=== PATIENT | female | born 1935 | race Caucasian/White ===

== ENCOUNTER 2019-07-29 13:06 | Emergency (ER) | payer MEDICARE, OTHER ==
--- NOTE | 2019-07-29 13:27 | ED ---
HPI Chest Pain - HPI Summary HPI Summary: The patient is an 84 y/o M presenting to [facility] accompanied by daughter with a chief complaint of intermittent episodes of diffuse CP for the last four days with hypertensive episodes for the last two days. When the CP began, she did not measure her BP, but since the CP continued intermittently although it lessened, she measured it over the last two days and found it to be elevated with 200mmHg systolic, per daughter. The CP is aggravated with lifting the right arm but not the left arm. She denies any pain or swelling in the calves, SOB, diaphoresis, or nausea. Currently, the sharp pain is rated 3/10 in severity as it has seemed to worsen again today. No diagnosed cardiac disease other than HTN. Unsure of cardiac FHx. No recent long travel. No history of blood clots. Last surgery in 2015 for right breast removal; currently on Anastrozole. Nonsmoker, occasional EtOH, no substance use. Medications reviewed. Allergies noted. - History of Current Complaint Time Seen by Provider: 07/29/19 13:18 Hx Obtained From: Patient, Family/Running Specialist - daughter Onset/Duration: Started Days Ago, Still Present Timing: Intermittent Initial Severity: Mild Current Severity: Moderate Pain Intensity: 3 Pain Scale Used: 0-10 Numeric Chest Pain Location: Diffuse Chest Pain Radiates: No Character: Sharp/Stabbing Aggravating Factor(s): Other: - lifting right arm Alleviating Factor(s): Spontaneous Resolution Associated Signs and Symptoms: Positive: Chest Pain. Negative: Shortness of Breath, Diaphoresis, Nausea - Allergy/Home Medications Allergies/Adverse Reactions: Allergies Allergy/AdvReac Type Severity Reaction Status Date / Time No Known Allergies Allergy Verified 11/25/15 07:20 Home Medications: Home Medications Anastrozole (NF) [Arimidex (NF)] 1 mg PO DAILY 07/29/19 [History Confirmed 07/29] Cholecalciferol CAP/TAB(NF) [Vitamin D3 CAP/TAB (NF)] 2,000 unit PO DAILY [History Confirmed 07/29/19] Cyanocobalamin TAB* [Vitamin B12 TAB*] 500 mcg PO DAILY 07/29/19 [History Confirmed 07/29/19] Glucosa Kendall 2Kcl/Chondroitin Kendall [Glucosamine & Chondroitin Cap] 1 each PO DAILY 07/29/19 [History Confirmed 07/29/19] PMH/Surg Hx/FS Hx/Imm Hx Cardiovascular History: Reports: Hx Hypertension - ON MEDS Denies: Other Cardiovascular Problems/Disorders GI History: Denies: Other GI Disorders Musculoskeletal History: 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 HERNIA REPAIR, RIGHT BREAST REMOVED 12/2015 Hx Anesthesia Reactions: No Infectious Disease History: No Infectious Disease History: Denies: Traveled Outside the [place] in Last 30 Days - Family History Known Family History: Negative: Diabetes - Social History Alcohol Use: Occasionally Alcohol Amount: 1 PER DAY Hx Substance Use: No Substance Use Type: Reports: None Hx Tobacco Use: No Smoking Status (MU): Never Smoked Tobacco Review of Systems Negative: Skin Diaphoresis Positive: Chest Pain - diffuse Negative: Shortness Of Breath Negative: Nausea All Other Systems Reviewed And Are Negative: Yes Physical Exam - Summary Physical Exam Summary: Constitutional: Well-developed, Well-nourished, Alert. (-) Distressed Skin: Warm, Dry HENT: Normocephalic; Atraumatic Eyes: Conjunctiva normal Neck: Musculoskeletal ROM normal neck. (-) JVD, (-) Stridor, (-) Tracheal deviation Cardio: Rhythm regular, rate normal, Heart sounds normal; Intact distal pulses; Radial pulses are 2+ and symmetric. (-) Murmur Pulmonary/Chest wall: Effort normal. Tenderness of the left and right costal margins. (-) Respiratory distress, (-) Wheezes, (-) Rales Abd: Soft, (-) tenderness, (-) Distension, (-) Guarding, (-) Rebound Musculoskeletal: (-) Edema Lymph: (-) Cervical adenopathy Neuro: Alert, Oriented x3 Psych: Mood and affect Normal Triage Information Reviewed: Yes Vital Signs On Initial Exam: Initial Vitals Temp Pulse Resp BP Pulse Ox 97.8 F 89 18 197/85 98 07/29/19 13:17 07/29/19 13:17 12/17/19 13:17 07/29/19 13:17 07/29/19 13:17 Vital Signs Reviewed: Yes Procedures - Sedation Patient Received Moderate/Deep Sedation with Procedure: No Diagnostics - Vital Signs Vital Signs Temp Pulse Resp BP Pulse Ox 07/29/19 13:17 97.8 F 89 18 197/85 98 - Laboratory Result Diagrams: 07/29/19 13:49 07/29/19 13:49 Lab Statement: Any lab studies that have been ordered have been reviewed, and results considered in the medical decision making process. - Radiology CXR Radiology Interpretation Completed By: Radiologist Summary of Radiographic Findings: Impression: No evidence for active cardiopulmonary disease. ED physician has reviewed this imaging report. - EKG 1309 Cardiac Rate: NL - 92 bpm EKG Rhythm: 1st Degree HB EKG Comparison: No Significant Change - Unchanged from EKG on 08/22/16. Summary of EKG Findings: An EKG at 1309 reveals sinus rhythm with first degree HB at 92 bpm. T-wave inversions in III. ED physician has reviewed and interpreted this EKG. Re-Evaluation - Re-Evaluation First Eval Re-Evaluation Time: 15:00 Comment: We discussed results and plan for discharge. Chest Pain Course/Dx - Course Course Of Treatment: Patient is here with 4 days of constant bilateral chest pain. Patient had an EKG performed which showed no changes from prior. Patient had negative troponin and d-dimer. Patient had negative chest x-ray. Patient was given nitroglycerin which low her blood pressure did not change her pain. Patient has a heart score of 3 and does not need an inpatient stress test. Patient's symptoms are likely costochondritis in nature as she has point tenderness but was referred to cardiology for a outpatient stress test - Diagnoses Provider Diagnoses: Left-sided chest wall pain, Right-sided chest wall pain Discharge ED - Sign-Out/Discharge Documenting (check all that apply): Patient Departure - Patient will be discharged home. - Discharge Plan Condition: Stable Disposition: HOME Patient Education Materials: Chest Pain (DC) Referrals: Betzy Arevalo MD [Primary Care Provider] - 3 Days Gurpreet Bliss MD [Medical Doctor] - 3 Days Additional Instructions: Follow up with cardiology and your primary care provider in 1-3 days for possible stress test. Return to the emergency department for any new or worsening symptoms such as chest pain, difficulty breathing, nausea, one-sided weakness, severe headache, change in vision, or slurred speech. Try taking Ibuprofen for pain relief. - Billing Disposition and Condition Condition: STABLE Disposition: Home - Attestation Statements Document Initiated by Chilo: Yes Documenting Scribe: Tatiana Griffith Provider For Whom Chilo is Documenting (Include Credential): Dr. Alexsander Yusuf MD Scribe Attestation: ITatiana, scribed for Dr. Alexsander Yusuf MD on 07/29/19 at 1706. Scribe Documentation Reviewed: Yes Provider Attestation: The documentation as recorded by the Tatiana schrader accurately reflects the service I personally performed and the decisions made by me, Dr. Alexsander Yusuf MD Status of Scribe Document: Viewed
[2019-07-29] MEDS ORDERED: Nitroglycerin TAB 0.4 MG* 0.4 MG TAB SL ONE (13:31)
[2019-07-29] MEDS ORDERED: Aspirin 81 mg CHEW TAB* 81 MG TAB.CHEW PO ONE (13:31)
[2019-07-29 14:13] LABS: ABS Lymphocytes 0.5 10^3/ul (1.0-4.8); ABS Monocytes 0.6 10^3/ul (0-0.8); ABS Neutrophils 5.4 10^3/ul (1.5-7.7); Eosinophil % 0.3 %; Hematocrit 48 % (35-47); Hemoglobin 16.1 g/dL (12.0-16.0); Lymphocyte % 8.3 %; Mean Corpuscular HGB Conc 34 g/dL (31-36); Mean Corpuscular Hemoglobin 31 pg (27-31); Mean Corpuscular Volume 90 fL (80-97); Nucleated Red Blood Cells % 0.1; Platelet Count 229 10^3/uL (150-450); Red Blood Count 5.29 10^6 /uL (3.70-4.87); Red Cell Distribution Width 13 % (10-15); White Blood Count 6.6 10^3/uL (3.5-10.8)
[2019-07-29 14:23] LABS: Albumin 4.4 g/dL (3.2-5.2); Albumin/Globulin Ratio 1.3 (1-3); BUN/Creatinine Ratio 16.9 (8-20); Calcium 9.6 mg/dL (8.6-10.3); EGFR African American 86.8 (>60); EGFR Non-African American 71.8 (>60); Globulin 3.4 g/dL (2-4); Potassium 3.7 mmol/L (3.5-5.0); Total Protein 7.8 g/dL (6.4-8.9)
[2019-07-29 15:14] VITALS: BP 163/99
== END 2019-07-29 15:27 | disposition home or self-care (01) ==
LOC: ED 13:06
DX: R07.89 Other chest pain (principal); I10 Essential (primary) hypertension; R94.31 Abnormal electrocardiogram [ECG] [EKG]; Z79.899 Other long term (current) drug therapy
CPT/HCPCS: 36415; 71045; 80053; 84484; 85025; 85379; 93005; 99284; A9270-GY